=== PATIENT | male | born 1955 | race Caucasian/White ===

== ENCOUNTER 2020-07-27 | Outpatient (CLI) | payer MEDICARE, BC | END 2020-07-27 08:31 | disposition EMS.NT | DX: R07.81 Pleurodynia (principal) ==

== ENCOUNTER 2020-07-27 | Outpatient (CLI) | payer MEDICARE, BC | END 2020-07-27 10:40 | disposition critical access hospital (66) | DX: R07.81 Pleurodynia (principal) | CPT/HCPCS: A0425; A0429 ==

== ENCOUNTER 2020-07-27 10:50 | Emergency (ER) | payer MEDICARE, BC ==
[2020-07-27] MEDS ORDERED: KETOROLAC 60 MG/2 ML VIAL IM STA (12:04)
[2020-07-27] MEDS ORDERED: HYDROmorphone 1 MG/ML CARPUJECT IM STA (12:04)
--- NOTE | 2020-07-27 12:34 | XRAY Report ---
PROCEDURE: Chest 1 View X-Ray INDICATIONS: chest pain TECHNIQUE: One view of the chest was acquired. 2 images. COMPARISON: None. FINDINGS: Surgical changes and devices: Scoliosis rods. Lungs and pleura: Blunting of the left costophrenic angle due to trace effusion. No pneumothorax. Mi nimal platelike opacity at the left lung base. There may be a trace calcification. Lungs otherwise ap pear clear. Mediastinum: Mediastinal contours appear normal. Heart size is normal. Bones and chest wall: No suspicious bony lesions. Overlying soft tissues appear unremarkable. IMPRESSION: 1. Trace left pleural effusion. 2. Platelike opacity at the left lung base with possible calcification. This could represent a calcif ied pleural plaque, atelectasis/scarring, or infectious/inflammatory etiology. -If clinically indicated this can be further evaluated with CT of the chest. Reviewed by: Hugo Olivera MD on 07/27/2020 12:33 PM PST Approved by: Hugo Olivera MD on 07/27/2020 12:33 PM [facility] Station ID: [id number]
--- NOTE | 2020-07-27 12:46 | ED Physician Documentation ---
History of Present Illness - Stated complaint Stated Complaint: CHEST MUSCLE PX - Chief complaint Chief Complaint: General - History obtained from History obtained from: Patient - Additonal information Additional information: Comes emergency department chief complaint of Left side pain that has been going on on and off for a couple of months, but is worse today. Patient states that it normally hurts with certain movements or deep breaths, but today, he could hardly move because it hurts about. Patient denies anything else that is new. No fevers or chills. No difficulty breathing. No cough. Patient denies any radiation of the pain, though he is a paraplegic and has no feeling below his upper abdomen. Patient states that the pain is right around the level of his left nipple and wraps around his side along the ribs. No trauma. 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 Nothing out of the ordinary activity mora lately, though. Review of Systems Ten Systems: 10 systems reviewed and negative Constitutional: reports: Reviewed and negative Eyes: reports: Reviewed and negative Ears: reports: Reviewed and negative Nose: reports: Reviewed and negative Throat: reports: Reviewed and negative Cardiac: reports: Chest pain / pressure Respiratory: reports: Reviewed and negative. denies: Dyspnea, Cough GI: reports: Reviewed and negative : reports: Reviewed and negative Skin: reports: Reviewed and negative Musculoskeletal: reports: Reviewed and negative Neurologic: reports: Reviewed and negative Psychiatric: reports: Reviewed and negative Endocrine: reports: Reviewed and negative Immunocompromised: reports: Reviewed and negative PD PAST MEDICAL HISTORY - Past Medical History Endocrine/Autoimmune: Type 2 diabetes - Past Surgical History Past Surgical History: Yes - Present Medications Home Medications: Ambulatory Orders Medication Instructions Recorded Confirmed Potassium Chloride 20 meq PO DAILY 12/17/15 07/27/20 amLODIPine [Norvasc] 10 mg PO DAILY 12/17/15 07/27/20 Apixaban [Eliquis] 5 mg PO DAILY 07/27/20 07/27/20 Atorvastatin [Lipitor] 10 mg PO DAILY 07/27/20 07/27/20 HYDROcod/ACETAM 5/325 [[place] 5/325] 1 - 2 ea PO Q6H PRN #15 tablet 07/27/20 Labetalol [Trandate] 100 mg PO BID 07/27/20 07/27/20 Losartan/Hydrochlorothiazide 1 tab PO DAILY 07/27/20 07/27/20 [Hyzaar 100-25 Tablet] Pioglitazone [Actos] 15 mg PO DAILY 07/27/20 07/27/20 - Allergies Allergies/Adverse Reactions: Allergies Allergy/AdvReac Type Severity Reaction Status Date / Time Sulfa (Sulfonamide Allergy Rash Verified 07/27/20 11:01 Antibiotics) - Social History Does the pt smoke?: No Smoking Status: Never smoker Does the pt drink ETOH?: No Does the pt have substance abuse?: No PD ED PE NORMAL - Vitals Vital signs reviewed: Yes - General General: Alert and oriented X 3, No acute distress - HEENT HEENT: Atraumatic, PERRL, EOMI, Moist mucous membranes - Neck Neck: Supple, no meningeal sign - Cardiac Cardiac: RRR, No murmur, Strong equal pulses - Respiratory Respiratory: No respiratory distress, Clear bilaterally, Other (Chest pain with palpation of chest wall along fifth intercostal space. No evidence of chest wall trauma.) - Abdomen Abdomen: Soft, Non tender, Non distended - Derm Derm: Warm and dry - Extremities Extremities: No deformity - Neuro Neuro: Alert and oriented X 3 - Psych Psych: Normal mood, Normal affect Results - Vitals Vitals: Oxygen O2 Source Room air - EKG (time done) 1208 Rate: Rate (enter#) (74) Rhythm: Atrial fibrillation [place]: Normal Intervals: Normal AL, LBBB QRS: Normal Ischemia: Normal ST segments Compare to prior EKG: Old EKG unavailable Computer interpretation: Agree with computer - Rads (name of study) cxr Radiology: Final report received, EMP read indepedently, See rad report (neg) PD MEDICAL DECISION MAKING - ED course Complexity details: reviewed results, re-evaluated patient, considered differential, d/w patient ED course: I d/w pt that his EKG and CXR look good. There is no evidence of a serious or emergent cause of his CP, which seems to be an exacerbation of his chronic sx. Additionally, the pt is well-appearing, and has a normal exam except for reproducible CW pain. I feel that the most probable cause of his pain is muscu loskeletal. The pt has mentioned concern about possible urinary calculus, but I do not feel that this is likely, based on the history and findings. We have discussed the usual indications for return. Departure - Departure Disposition: Home, Self Care Clinical Impression: Chest wall pain Condition: Stable Instructions: ED Chest Pain Costochondritis Prescriptions: HYDROcod/ACETAM 5/325 [[place] 5/325] 1 - 2 ea PO Q6H PRN #15 tablet PRN Reason: Pain Comments: Your x-ray and EKG do not show any acute issues today. The pain you are describing sounds more like it is coming from the structural/mechanical components of your chest. Please take the medication you have been prescribed to help with the pain. You may follow-up with your primary care physician as needed. Discharge Date/Time: 07/27/20 13:35
[2020-07-27 16:26] VITALS: BP 150/90
== END 2020-07-27 13:35 | disposition home or self-care (01) ==
LOC: EDUNIT# → ED 10:50
DX: R07.89 Other chest pain (principal); E11.9 Type 2 diabetes mellitus without complications; I48.91 Unspecified atrial fibrillation; Z79.01 Long term (current) use of anticoagulants; I44.7 Left bundle-branch block, unspecified
CPT/HCPCS: 71045; 93005; 96372; 99284; 99285; J1170

== ENCOUNTER 2020-08-08 08:00 | Outpatient (CLI) | payer MEDICARE, BC ==
[2020-08-08 10:46] LABS: BASOPHILS % (AUTO) 0.5 %; EOSINOPHILS # (AUTO) 0.2 10^3/uL (0.0-0.7); HGB - HEMOGLOBIN 14.6 g/dL (14.0-18.0); LYMPHOCYTES # (AUTO) 0.8 10^3/uL (1.5-3.5); LYMPHOCYTES % (AUTO) 11.3 %; MEAN CORPUSCULAR HEMOGLOBIN 28.5 pg (27.0-31.0); MEAN CORPUSCULAR HGB CONC 32.5 g/dL (32.0-36.0); MEAN CORPUSCULAR VOLUME 87.7 fL (80.0-94.0); MEAN PLATELET VOLUME 11.9 fL (7.4-11.4); MONOCYTES # (AUTO) 0.6 10^3/uL (0.0-1.0); NEUTROPHILS # (AUTO) 5.7 10^3/uL (1.5-6.6); NEUTROPHILS % (AUTO) 77.7 %; PLT - PLATELET COUNT 226 10^3/uL (130-450); RED BLOOD COUNT 5.12 10^6/uL (4.70-6.10); RED CELL DISTRIBUTION WIDTH 13.3 % (12.0-15.0); WHITE BLOOD COUNT 7.3 x10^3/uL (4.8-10.8)
[2020-08-08 11:05] LABS: ALBUMIN 3.8 g/dL (3.2-5.5); ALBUMIN/GLOBULIN RATIO 1.1 (1.0-2.2); ALKALINE PHOSPHATASE 71 IU/L (42-121); ALT ALANINE AMINOTRANSFERASE 23 IU/L (10-60); AST ASPARTATE AMINOTRANSFERASE 17 IU/L (10-42); BILIRUBIN,TOTAL 0.8 mg/dL (0.2-1.0); BUN - BLOOD UREA NITROGEN 15 mg/dL (6-20); CARBON DIOXIDE - CO2 26 mmol/L (21-32); CHLORIDE 100 mmol/L (101-111); CREATININE 0.4 mg/dL (0.6-1.2); CRP - C-REACTIVE PROTEIN 1.2 mg/dL (0-1.0); GLUCOSE 198 mg/dL (70-100); SODIUM 136 mmol/L (135-145); TOTAL PROTEIN 7.3 g/dL (6.7-8.2); VANCOMYCIN,TROUGH 11.1 ug/mL (10.0-20.0)
== END 2020-08-08 23:59 | disposition home or self-care (01) ==
LOC: LAB.R 08:00
PROVIDERS: ATTEND Internal Medicine Infectious Disease
DX: M46.26 Osteomyelitis of vertebra, lumbar region (principal); I48.0 Paroxysmal atrial fibrillation; E11.9 Type 2 diabetes mellitus without complications
CPT/HCPCS: 80053; 80202; 85025; 85651; 86140

== ENCOUNTER 2020-08-10 08:00 | Outpatient (CLI) | payer MEDICARE, BC ==
[2020-08-10 15:55] LABS: CALCIUM 9.5 mg/dL (8.5-10.3); CREATININE 0.3 mg/dL (0.6-1.2)
== END 2020-08-10 23:59 | disposition home or self-care (01) ==
LOC: LAB.R 08:00
PROVIDERS: ATTEND Internal Medicine Infectious Disease
DX: M46.26 Osteomyelitis of vertebra, lumbar region (principal); E11.9 Type 2 diabetes mellitus without complications; I48.0 Paroxysmal atrial fibrillation
CPT/HCPCS: 80048

== ENCOUNTER 2020-08-14 09:30 | Outpatient (CLI) | payer MEDICARE, BC ==
[2020-08-14 11:09] LABS: BASOPHILS # (AUTO) 0.1 10^3/uL (0.0-0.1); BASOPHILS % (AUTO) 0.9 %; EOSINOPHILS # (AUTO) 0.2 10^3/uL (0.0-0.7); EOSINOPHILS % (AUTO) 2.4 %; HGB - HEMOGLOBIN 13.4 g/dL (14.0-18.0); LYMPHOCYTES # (AUTO) 1.1 10^3/uL (1.5-3.5); LYMPHOCYTES % (AUTO) 16.9 %; MEAN CORPUSCULAR HEMOGLOBIN 28.9 pg (27.0-31.0); MEAN CORPUSCULAR HGB CONC 32.6 g/dL (32.0-36.0); MEAN CORPUSCULAR VOLUME 88.8 fL (80.0-94.0); MEAN PLATELET VOLUME 11.8 fL (7.4-11.4); MONOCYTES # (AUTO) 0.6 10^3/uL (0.0-1.0); MONOCYTES % (AUTO) 8.8 %; NEUTROPHILS # (AUTO) 4.7 10^3/uL (1.5-6.6); NEUTROPHILS % (AUTO) 70.5 %; PLT - PLATELET COUNT 242 10^3/uL (130-450); RED BLOOD COUNT 4.63 10^6/uL (4.70-6.10); RED CELL DISTRIBUTION WIDTH 13.4 % (12.0-15.0); WHITE BLOOD COUNT 6.6 x10^3/uL (4.8-10.8)
[2020-08-14 11:24] LABS: ALBUMIN 3.7 g/dL (3.2-5.5); ALBUMIN/GLOBULIN RATIO 1.1 (1.0-2.2); ALKALINE PHOSPHATASE 68 IU/L (42-121); ALT ALANINE AMINOTRANSFERASE 19 IU/L (10-60); AST ASPARTATE AMINOTRANSFERASE 15 IU/L (10-42); BUN - BLOOD UREA NITROGEN 14 mg/dL (6-20); CALCIUM 9.6 mg/dL (8.5-10.3); CARBON DIOXIDE - CO2 28 mmol/L (21-32); CHLORIDE 97 mmol/L (101-111); CREATININE 0.4 mg/dL (0.6-1.2); CRP - C-REACTIVE PROTEIN 2.3 mg/dL (0-1.0); GLUCOSE 174 mg/dL (70-100); SODIUM 139 mmol/L (135-145); VANCOMYCIN,TROUGH 14.9 ug/mL (10.0-20.0)
== END 2020-08-14 23:59 | disposition home or self-care (01) ==
LOC: LAB.R 09:30
PROVIDERS: ATTEND Internal Medicine Infectious Disease
DX: M46.26 Osteomyelitis of vertebra, lumbar region (principal); I48.0 Paroxysmal atrial fibrillation; E11.9 Type 2 diabetes mellitus without complications
CPT/HCPCS: 36415; 80053; 80202; 85025; 85651; 86140

== ENCOUNTER 2020-08-17 09:55 | Outpatient (CLI) | payer MEDICARE, BC ==
[2020-08-17 18:55] LABS: CALCIUM 9.1 mg/dL (8.5-10.3); CREATININE 0.4 mg/dL (0.6-1.2)
== END 2020-08-17 23:59 | disposition home or self-care (01) ==
LOC: LAB.R 09:55
PROVIDERS: ATTEND Internal Medicine Infectious Disease
DX: M46.26 Osteomyelitis of vertebra, lumbar region (principal); I48.0 Paroxysmal atrial fibrillation; E11.9 Type 2 diabetes mellitus without complications
CPT/HCPCS: 80048

== ENCOUNTER 2020-08-21 08:00 | Outpatient (CLI) | payer MEDICARE, BC ==
[2020-08-21 18:16] LABS: BASOPHILS # (AUTO) 0.1 10^3/uL (0.0-0.1); BASOPHILS % (AUTO) 0.7 %; EOSINOPHILS # (AUTO) 0.1 10^3/uL (0.0-0.7); EOSINOPHILS % (AUTO) 2.1 %; HGB - HEMOGLOBIN 12.6 g/dL (14.0-18.0); LYMPHOCYTES # (AUTO) 0.9 10^3/uL (1.5-3.5); LYMPHOCYTES % (AUTO) 13.4 %; MEAN CORPUSCULAR HEMOGLOBIN 28.6 pg (27.0-31.0); MEAN CORPUSCULAR HGB CONC 31.7 g/dL (32.0-36.0); MEAN CORPUSCULAR VOLUME 90.2 fL (80.0-94.0); MEAN PLATELET VOLUME 11.7 fL (7.4-11.4); MONOCYTES # (AUTO) 0.7 10^3/uL (0.0-1.0); MONOCYTES % (AUTO) 9.8 %; NEUTROPHILS % (AUTO) 73.6 %; PLT - PLATELET COUNT 220 10^3/uL (130-450); RED CELL DISTRIBUTION WIDTH 13.7 % (12.0-15.0); WHITE BLOOD COUNT 6.7 x10^3/uL (4.8-10.8)
[2020-08-21 18:26] LABS: ALBUMIN 3.7 g/dL (3.2-5.5); ALBUMIN/GLOBULIN RATIO 1.2 (1.0-2.2); ALKALINE PHOSPHATASE 70 IU/L (42-121); ALT ALANINE AMINOTRANSFERASE 20 IU/L (10-60); AST ASPARTATE AMINOTRANSFERASE 18 IU/L (10-42); BUN - BLOOD UREA NITROGEN 16 mg/dL (6-20); CARBON DIOXIDE - CO2 26 mmol/L (21-32); CHLORIDE 101 mmol/L (101-111); CREATININE 0.4 mg/dL (0.6-1.2); GLUCOSE 222 mg/dL (70-100); TOTAL PROTEIN 6.8 g/dL (6.7-8.2); VANCOMYCIN,TROUGH 18.4 ug/mL (10.0-20.0)
== END 2020-08-21 23:59 | disposition home or self-care (01) ==
LOC: LAB.R 08:00
PROVIDERS: ATTEND Internal Medicine Infectious Disease
DX: M46.26 Osteomyelitis of vertebra, lumbar region (principal); E11.9 Type 2 diabetes mellitus without complications; I48.0 Paroxysmal atrial fibrillation
CPT/HCPCS: 80053; 80202; 85025; 85651; 86140

== ENCOUNTER 2020-08-24 08:00 | Outpatient (CLI) | payer MEDICARE, BC ==
[2020-08-24 18:12] LABS: CALCIUM 8.7 mg/dL (8.5-10.3); CREATININE 0.4 mg/dL (0.6-1.2)
== END 2020-08-24 23:59 | disposition home or self-care (01) ==
LOC: LAB.R 08:00
PROVIDERS: ATTEND Internal Medicine Infectious Disease
DX: E11.9 Type 2 diabetes mellitus without complications (principal); M46.26 Osteomyelitis of vertebra, lumbar region; I48.0 Paroxysmal atrial fibrillation
CPT/HCPCS: 80048

== ENCOUNTER 2020-08-28 16:30 | Outpatient (CLI) | payer MEDICARE, BC ==
[2020-08-28 18:14] LABS: BILIRUBIN,URINE NEGATIVE (NEGATIVE); GLUCOSE, URINE (UA) NEGATIVE (NEGATIVE); KETONES,URINE (UA) NEGATIVE (NEGATIVE); LEUKOCYTE ESTERASE, URINE NEGATIVE (NEGATIVE); NITRITE,URINE NEGATIVE (NEGATIVE); OCCULT BLOOD,URINE NEGATIVE (NEGATIVE); PROTEIN,URINE NEGATIVE (NEGATIVE); UROBILINOGEN,URINE 0.2 (NORMAL) E.U./dL (NORMAL)
[2020-08-28 18:17] LABS: CLARITY,URINE CLEAR (CLEAR)
[2020-08-28 18:18] LABS: BASOPHILS # (AUTO) 0.1 10^3/uL (0.0-0.1); BASOPHILS % (AUTO) 0.6 %; EOSINOPHILS # (AUTO) 0.2 10^3/uL (0.0-0.7); EOSINOPHILS % (AUTO) 1.5 %; LYMPHOCYTES # (AUTO) 1.4 10^3/uL (1.5-3.5); LYMPHOCYTES % (AUTO) 11.5 %; MEAN CORPUSCULAR HEMOGLOBIN 29.2 pg (27.0-31.0); MEAN CORPUSCULAR HGB CONC 31.5 g/dL (32.0-36.0); MEAN CORPUSCULAR VOLUME 92.7 fL (80.0-94.0); MEAN PLATELET VOLUME 11.4 fL (7.4-11.4); MONOCYTES # (AUTO) 1.3 10^3/uL (0.0-1.0); MONOCYTES % (AUTO) 10.7 %; NEUTROPHILS # (AUTO) 9.3 10^3/uL (1.5-6.6); NEUTROPHILS % (AUTO) 75.1 %; PLT - PLATELET COUNT 408 10^3/uL (130-450); RED BLOOD COUNT 2.33 10^6/uL (4.70-6.10); RED CELL DISTRIBUTION WIDTH 13.2 % (12.0-15.0); WHITE BLOOD COUNT 12.4 x10^3/uL (4.8-10.8)
[2020-08-28 18:43] LABS: HGB - HEMOGLOBIN 6.8 g/dL (14.0-18.0)
== END 2020-08-28 23:59 | disposition home or self-care (01) ==
LOC: LAB.R 16:30
PROVIDERS: ATTEND Internal Medicine Infectious Disease
DX: M46.26 Osteomyelitis of vertebra, lumbar region (principal); N39.0 Urinary tract infection, site not specified
CPT/HCPCS: 81001; 81003; 85025; 87040; 87086

== ENCOUNTER 2020-08-28 20:05 | Emergency (ER) | payer MEDICARE, BC ==
[2020-08-28 20:57] LABS: BASOPHILS # (AUTO) 0.1 10^3/uL (0.0-0.1); BASOPHILS % (AUTO) 0.6 %; EOSINOPHILS # (AUTO) 0.2 10^3/uL (0.0-0.7); HGB - HEMOGLOBIN 11.9 g/dL (14.0-18.0); LYMPHOCYTES % (AUTO) 12.1 %; MEAN CORPUSCULAR HEMOGLOBIN 28.5 pg (27.0-31.0); MEAN CORPUSCULAR HGB CONC 31.7 g/dL (32.0-36.0); MEAN CORPUSCULAR VOLUME 89.7 fL (80.0-94.0); MEAN PLATELET VOLUME 10.5 fL (7.4-11.4); MONOCYTES # (AUTO) 0.9 10^3/uL (0.0-1.0); MONOCYTES % (AUTO) 11.5 %; NEUTROPHILS # (AUTO) 5.8 10^3/uL (1.5-6.6); NEUTROPHILS % (AUTO) 73.5 %; PLT - PLATELET COUNT 297 10^3/uL (130-450); RED BLOOD COUNT 4.18 10^6/uL (4.70-6.10); RED CELL DISTRIBUTION WIDTH 13.2 % (12.0-15.0); WHITE BLOOD COUNT 7.9 x10^3/uL (4.8-10.8)
[2020-08-28 21:13] LABS: CALCIUM 9.2 mg/dL (8.5-10.3); CREATININE 0.4 mg/dL (0.6-1.2); CRP - C-REACTIVE PROTEIN 9.8 mg/dL (0-1.0)
--- NOTE | 2020-08-28 21:41 | ED Physician Documentation ---
History of Present Illness - Stated complaint Stated Complaint: ABNORMAL LABS - Chief complaint Chief Complaint: General - History obtained from History obtained from: Patient - Additonal information Additional information: Patient comes emergency department with chief complaint of abnormal labs drawn by home health. The patient's labs had shown a mildly elevated white blood cell count and a significantly low hemoglobin at 6.8. This was an abrupt change from the patient's recent labs. The patient states that he is feeling quite well and actually, he has had the best day today that he has had in the last 2 weeks. The patient is currently being worked up and treated for an apparently sterile discitis, as well as ongoing, intermittently severe, left-sided chest pain. The patient has a central line in place which has been used for IV antibiotics until 2 days ago. He states that he is going to see his neurosurgeon in 2 days and that the neurosurgeon will decide whether there is still any significant likelihood of infectious source of his discitis. If not, plan is to remove the central line at that time. The patient has had multiple biopsies of the inflamed area which involves L2 and L3, and so far, no evidence of malignancy or infection has been found. Patient denies any other complaints at this time. He has oxycodone at home and states that his pain is currently under control. No recent fevers. No blood in his stools. No other complaints at this time. Review of Systems Ten Systems: 10 systems reviewed and negative Constitutional: reports: Reviewed and negative Eyes: reports: Reviewed and negative Ears: reports: Reviewed and negative Nose: reports: Reviewed and negative Throat: reports: Reviewed and negative Cardiac: reports: Reviewed and negative Respiratory: reports: Reviewed and negative GI: reports: Reviewed and negative : reports: Reviewed and negative Skin: reports: Reviewed and negative Musculoskeletal: reports: Reviewed and negative Neurologic: reports: Reviewed and negative Psychiatric: reports: Reviewed and negative Endocrine: reports: Reviewed and negative Immunocompromised: reports: Reviewed and negative PD PAST MEDICAL HISTORY - Past Medical History Past Medical History: Yes Endocrine/Autoimmune: Type 2 diabetes - Past Surgical History Past Surgical History: Yes - Present Medications Home Medications: Ambulatory Orders Medication Instructions Recorded Confirmed Potassium Chloride 20 meq PO DAILY 12/17/15 08/28/20 amLODIPine [Norvasc] 10 mg PO DAILY 12/17/15 08/28/20 Apixaban [Eliquis] 5 mg PO DAILY 07/27/20 08/28/20 Atorvastatin [Lipitor] 10 mg PO DAILY 07/27/20 08/28/20 Labetalol [Trandate] 100 mg PO BID 07/27/20 08/28/20 Losartan/Hydrochlorothiazide 1 tab PO DAILY 07/27/20 08/28/20 [Hyzaar 100-25 Tablet] Pioglitazone [Actos] 15 mg PO DAILY 07/27/20 08/28/20 Cefdinir 300 mg PO BID 08/28/20 08/28/20 Doxycycline Monohydrate [Avidoxy] 100 mg PO BID 08/28/20 08/28/20 Dulaglutide [Trulicity] 08/28/20 Eplerenone [Inspra] 50 mg PO DAILY 08/28/20 08/28/20 HYDROcod/ACETAM 5/325 [[place] 5/325] 1 - 2 tab PO PRN 08/28/20 glyBURIDE [Glyburide] 1.25 08/28/20 - Allergies Allergies/Adverse Reactions: Allergies Allergy/AdvReac Type Severity Reaction Status Date / Time Sulfa (Sulfonamide Allergy Rash Verified 08/28/20 20:11 Antibiotics) - Social History Does the pt smoke?: No Smoking Status: Never smoker Does the pt drink ETOH?: No Does the pt have substance abuse?: No - Immunizations Immunizations are current?: Yes PD ED PE NORMAL - Vitals Vital signs reviewed: Yes - General General: Alert and oriented X 3, No acute distress - HEENT HEENT: Atraumatic, PERRL, EOMI, Moist mucous membranes - Neck Neck: Supple, no meningeal sign - Cardiac Cardiac: RRR, No murmur - Respiratory Respiratory: No respiratory distress, Clear bilaterally - Derm Derm: Normal color, Warm and dry, No rash - Extremities Extremities: No deformity - Neuro Neuro: Alert and oriented X 3, Other (Absent sensation from the upper abdomen and distally. Patient is a paraplegic and has no motor or sensory capabilities in his lower extremities.) - Psych Psych: Normal mood, Normal affect Results - Vitals Vitals: Vital Signs - 24 hr 08/28/20 20:11 Temperature 36.5 C Heart Rate 90 Respiratory 16 Rate Blood Pressure 169/89 H O2 Saturation 97 Oxygen O2 Source Room air - Labs Labs: Laboratory Tests 08/28/20 08/28/20 20:49 20:49 WBC 7.9 RBC 4.18 L Hgb 11.9 L Hct 37.5 L MCV 89.7 MCH 28.5 MCHC 31.7 L RDW 13.2 Plt Count 297 MPV 10.5 Neut # (Auto) 5.8 Lymph # (Auto) 1.0 L [place] # (Auto) 0.9 Eos # (Auto) 0.2 Baso # (Auto) 0.1 Absolute Nucleated RBC 0.00 Nucleated RBC % 0.0 Sodium 137 Potassium 3.5 Chloride 99 L Carbon Dioxide 27 Anion Gap 11.0 BUN 22 H Creatinine 0.4 L Estimated GFR (MDRD) 217 Glucose 151 H Calcium 9.2 C-Reactive Protein 9.8 H PD MEDICAL DECISION MAKING - ED course Complexity details: reviewed old records, reviewed results, re-evaluated patient, considered differential, d/w patient ED course: CBC was performed here in the emergency department and showed a normal white blood cell count 7.9 and a nearly normal hemoglobin at 11.9. The patient was feeling very well and I discussed with him that I am not sure what the reason was for his abnormal labs earlier. However, he does not have any symptoms of infection or of internal bleeding and I feel that he is stable for discharge. [facility] requested that patient central line be removed in the emergency department but patient would like to hold off on doing this until he sees the neurosurgeon, as the plan has been to keep the central line until then. I feel this is reasonable. We have discussed the usual indications for return. Departure - Departure Disposition: 01 Home, Self Care Clinical Impression: Abnormal laboratory test result Condition: Stable Comments: Your labs today in the emergency department look great. There is no evidence of an elevated white blood cell count, nor is there evidence of significant anemia. It is not clear what caused her abnormal blood work outside of her system today, but your results here are reassuring. Please continue your plans to follow-up with your neurosurgeon on Friday. Since your plan was to leave the central line in until you see your neurosurgeon, we will continue with that plan. If you develop fevers or blood in your stools or any other concerns times, please seek medical reevaluation immediately.
[2020-08-28 21:47] VITALS: BP 164/100
== END 2020-08-28 21:47 | disposition home or self-care (01) ==
LOC: ED 20:05
DX: R79.89 Other specified abnormal findings of blood chemistry (principal); M46.40 Discitis, unspecified, site unspecified; G82.20 Paraplegia, unspecified; E11.9 Type 2 diabetes mellitus without complications; Z79.84 Long term (current) use of oral hypoglycemic drugs; Z79.01 Long term (current) use of anticoagulants; M46.26 Osteomyelitis of vertebra, lumbar region; N39.0 Urinary tract infection, site not specified
CPT/HCPCS: 36415; 80048; 81001; 81003; 85025; 85651; 86140; 86850; 86900; 86901; 87040; 87086; 99283

== ENCOUNTER 2020-08-31 14:49 | Emergency (ER) | payer MEDICARE, BC ==
[2020-08-31 15:09] VITALS: BP 166/80
[2020-08-31] MEDS ORDERED: BUFFERED LIDOCAINE 10 ML SYRINGE SUBQ STA (15:22)
--- NOTE | 2020-08-31 15:34 | ED Physician Documentation ---
History of Present Illness - Stated complaint Stated Complaint: CENTRAL LINE REMOVAL - Chief complaint Chief Complaint: General - History obtained from History obtained from: Patient - Additonal information Additional information: He was getting IV antibiotics for discitis of the spine, but since all the cultures have come back negative he is no longer getting antibiotics and presents requesting his central line be removed. Review of Systems Constitutional: reports: Reviewed and negative Eyes: reports: Reviewed and negative Ears: reports: Reviewed and negative Nose: reports: Reviewed and negative PD PAST MEDICAL HISTORY - Past Medical History Past Medical History: Yes Endocrine/Autoimmune: Type 2 diabetes - Past Surgical History Past Surgical History: Yes Ortho: Other - Present Medications Home Medications: Ambulatory Orders Medication Instructions Recorded Confirmed Potassium Chloride 20 meq PO DAILY 12/17/15 08/28/20 amLODIPine [Norvasc] 10 mg PO DAILY 12/17/15 08/28/20 Apixaban [Eliquis] 5 mg PO DAILY 07/27/20 08/28/20 Atorvastatin [Lipitor] 10 mg PO DAILY 07/27/20 08/28/20 Labetalol [Trandate] 100 mg PO BID 07/27/20 08/28/20 Losartan/Hydrochlorothiazide 1 tab PO DAILY 07/27/20 08/28/20 [Hyzaar 100-25 Tablet] Pioglitazone [Actos] 15 mg PO DAILY 07/27/20 08/28/20 Cefdinir 300 mg PO BID 08/28/20 08/28/20 Doxycycline Monohydrate [Avidoxy] 100 mg PO BID 08/28/20 08/28/20 Dulaglutide [Trulicity] 08/28/20 Eplerenone [Inspra] 50 mg PO DAILY 08/28/20 08/28/20 HYDROcod/ACETAM 5/325 [[place] 5/325] 1 - 2 tab PO PRN 08/28/20 glyBURIDE [Glyburide] 1.25 08/28/20 - Allergies Allergies/Adverse Reactions: Allergies Allergy/AdvReac Type Severity Reaction Status Date / Time amoxicillin [From Augmentin] Allergy Unknown Verified 08/31/20 15:09 clavulanic acid Allergy Unknown Verified 08/31/20 15:09 [From Augmentin] Sulfa (Sulfonamide Allergy Rash Verified 08/28/20 20:11 Antibiotics) - Social History Does the pt smoke?: No Smoking Status: Never smoker Does the pt drink ETOH?: No Does the pt have substance abuse?: No - Immunizations Immunizations are current?: Yes PD ED PE NORMAL - Vitals Vital signs reviewed: Yes - General General: Alert and oriented X 3, No acute distress - HEENT HEENT: PERRL, EOMI - Neck Neck: Supple, no meningeal sign, No bony TTP - Derm Derm: Other (There is a tunneled [place] type catheter in the right upper chest without signs of infection) Results - Vitals Vitals: Vital Signs - 24 hr 08/31/20 15:03 Temperature 36 C L Heart Rate 81 Respiratory 16 Rate Blood Pressure 166/80 H O2 Saturation 99 Oxygen O2 Source Room air PD MEDICAL DECISION MAKING - ED course ED course: The area around the catheter was prepped with iodine and the sutures cut. The tract was dilated gently with hemostats and the catheter was removed in its entirety and without complication. Departure - Departure Disposition: 01 Home, Self Care Clinical Impression: PIC line (peripherally inserted central catheter) removal Condition: Good Record reviewed to determine appropriate education?: Yes Comments: Follow-up with your infectious disease doctors as per your new routine. Return if worse.
== END 2020-08-31 15:48 | disposition home or self-care (01) ==
LOC: ED 14:49
DX: Z45.2 Encounter for adjustment and management of vascular access device (principal); E11.9 Type 2 diabetes mellitus without complications; Z79.899 Other long term (current) drug therapy
CPT/HCPCS: 99282; 99283

== ENCOUNTER 2020-09-12 13:39 | Outpatient (CLI) | payer MEDICARE, BC ==
[2020-09-12 14:16] LABS: BASOPHILS # (AUTO) 0.1 10^3/uL (0.0-0.1); BASOPHILS % (AUTO) 0.8 %; EOSINOPHILS # (AUTO) 0.2 10^3/uL (0.0-0.7); EOSINOPHILS % (AUTO) 2.1 %; LYMPHOCYTES # (AUTO) 1.4 10^3/uL (1.5-3.5); LYMPHOCYTES % (AUTO) 15.9 %; MEAN CORPUSCULAR HEMOGLOBIN 27.8 pg (27.0-31.0); MEAN CORPUSCULAR HGB CONC 31.2 g/dL (32.0-36.0); MEAN CORPUSCULAR VOLUME 89.1 fL (80.0-94.0); MEAN PLATELET VOLUME 10.4 fL (7.4-11.4); MONOCYTES # (AUTO) 0.7 10^3/uL (0.0-1.0); MONOCYTES % (AUTO) 8.1 %; NEUTROPHILS # (AUTO) 6.1 10^3/uL (1.5-6.6); NEUTROPHILS % (AUTO) 72.3 %; PLT - PLATELET COUNT 421 10^3/uL (130-450); RED BLOOD COUNT 3.96 10^6/uL (4.70-6.10); RED CELL DISTRIBUTION WIDTH 13.2 % (12.0-15.0); WHITE BLOOD COUNT 8.5 x10^3/uL (4.8-10.8)
== END 2020-09-12 13:40 | disposition home or self-care (01) ==
LOC: LAB 13:39
PROVIDERS: ATTEND Internal Medicine Infectious Disease
DX: M46.20 Osteomyelitis of vertebra, site unspecified (principal)
CPT/HCPCS: 36415; 85025; 85651; 86141

== ENCOUNTER 2020-10-27 11:30 | Outpatient (CLI) | payer MEDICARE, BC ==
[2020-10-27 12:07] LABS: BASOPHILS # (AUTO) 0.1 10^3/uL (0.0-0.1); EOSINOPHILS # (AUTO) 0.1 10^3/uL (0.0-0.7); EOSINOPHILS % (AUTO) 1.9 %; HCT - HEMATOCRIT 41.8 % (42.0-52.0); HGB - HEMOGLOBIN 12.8 g/dL (14.0-18.0); LYMPHOCYTES % (AUTO) 20.1 %; MEAN CORPUSCULAR HEMOGLOBIN 26.8 pg (27.0-31.0); MEAN CORPUSCULAR HGB CONC 30.6 g/dL (32.0-36.0); MEAN CORPUSCULAR VOLUME 87.6 fL (80.0-94.0); MEAN PLATELET VOLUME 10.9 fL (7.4-11.4); MONOCYTES # (AUTO) 0.4 10^3/uL (0.0-1.0); MONOCYTES % (AUTO) 8.1 %; NEUTROPHILS # (AUTO) 3.5 10^3/uL (1.5-6.6); NEUTROPHILS % (AUTO) 68.3 %; PLT - PLATELET COUNT 271 10^3/uL (130-450); RED BLOOD COUNT 4.77 10^6/uL (4.70-6.10); RED CELL DISTRIBUTION WIDTH 14.6 % (12.0-15.0); WHITE BLOOD COUNT 5.2 x10^3/uL (4.8-10.8)
--- OUTSIDE RECORDS SUMMARY | 2020-11-01 01:51 | EXTERNAL MEDICAL SUMMARY RPT | Continuity of Care Document ---
:1955 Demographics Phone Unavailable Preferred Language Unknown Marital Status Unknown [employer] Affiliation Unknown Race Unknown Ethnic Group Unknown Author Organization [facility] Address [address] [place] [address] Phone Social History date description facility [phone]
[2020-11-01 19:52] LABS: ESTIMATED AVERAGE GLUCOSE 126 mg/dL (70-100)
== END 2020-10-27 11:31 | disposition home or self-care (01) ==
LOC: LAB 11:30
PROVIDERS: ATTEND Internal Medicine Infectious Disease
DX: M54.6 Pain in thoracic spine (principal); G89.29 Other chronic pain; E11.69 Type 2 diabetes mellitus with other specified complication; E78.5 Hyperlipidemia, unspecified
CPT/HCPCS: 36415; 83036; 85025; 85651; 86141

== ENCOUNTER 2021-07-29 10:46 | Emergency (ER) | payer MEDICARE, BC ==
[2021-07-29 11:08] VITALS: BP 187/63
--- NOTE | 2021-07-29 11:58 | ED Physician Documentation ---
History of Present Illness - Stated complaint Stated Complaint: R LEG LAC - Chief complaint Chief Complaint: Wound - Additonal information Additional information: 66-year-old male presents emergency department for evaluation of right lower la teral leg infection. 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 He is also a diabetic. He reports that yesterday he woke up and noticed the redness as well is a sore. He is unsure how it developed and denies that he has had new activities in his wheelchair, new clothing or socks. He denies any fevers, recent falls. He does report that they squeezed about a quarter sized amount of pus from the wound this morning. He has a diabetic compliant with his insulins. Reports fasting sugars typically about 130. He is also scheduled to undergo a pacemaker placement through [facility] within the next few weeks due to persistent bradycardia. He denies any chest pain or shortness of air. No syncopal episodes. Review of Systems Constitutional: denies: Fever, Chills Nose: reports: Reviewed and negative Throat: reports: Reviewed and negative Cardiac: reports: Reviewed and negative Respiratory: reports: Reviewed and negative GI: reports: Reviewed and negative Skin: reports: Lesions Musculoskeletal: reports: Reviewed and negative PD PAST MEDICAL HISTORY - Past Medical History Endocrine/Autoimmune: Type 2 diabetes - Past Surgical History Past Surgical History: Yes Ortho: Other - Present Medications Home Medications: Ambulatory Orders Medication Instructions Recorded Confirmed Potassium Chloride 20 meq PO DAILY 12/17/15 08/28/20 amLODIPine [Norvasc] 10 mg PO DAILY 12/17/15 08/28/20 Apixaban [Eliquis] 5 mg PO DAILY 07/27/20 08/28/20 Atorvastatin [Lipitor] 10 mg PO DAILY 07/27/20 08/28/20 Labetalol [Trandate] 100 mg PO BID 07/27/20 08/28/20 Losartan/Hydrochlorothiazide 1 tab PO DAILY 07/27/20 08/28/20 [Hyzaar 100-25 Tablet] Pioglitazone [Actos] 15 mg PO DAILY 07/27/20 08/28/20 Cefdinir 300 mg PO BID 08/28/20 08/28/20 Doxycycline Monohydrate [Avidoxy] 100 mg PO BID 08/28/20 08/28/20 Dulaglutide [Trulicity] 08/28/20 Eplerenone [Inspra] 50 mg PO DAILY 08/28/20 08/28/20 HYDROcod/ACETAM 5/325 [[place] 5/325] 1 - 2 tab PO PRN 08/28/20 glyBURIDE [Glyburide] 1.25 08/28/20 Doxycycline Hyclate [Vibramycin] 100 mg PO BID #20 cap 07/29/21 - Allergies Allergies/Adverse Reactions: Allergies Allergy/AdvReac Type Severity Reaction Status Date / Time amoxicillin [From Augmentin] Allergy Unknown Verified 07/29/21 11:08 clavulanic acid Allergy Unknown Verified 07/29/21 11:08 [From Augmentin] Sulfa (Sulfonamide Allergy Rash Verified 07/29/21 11:08 Antibiotics) - Social History Does the pt smoke?: No Smoking Status: Never smoker Does the pt drink ETOH?: No Does the pt have substance abuse?: No - Immunizations Immunizations are current?: Yes PD ED PE EXPANDED - General General: Alert, No acute distress, Well developed/nourished - Cardiac Cardiac: [place], Radial strong equal, Pedal strong equal, Cap refill < 2 sec - Respiratory Respiratory: Clear to ausultation tami. No: Distress, Labored - Abdomen Abdomen: Normal Bowel sounds. No: Tender to palpation - Extremities Extremities: Right leg (1 cm superficial ulceration right lower lateral leg proximal to the ankle. There is a fair amount of surrounding erythema measuring approximately 5 x 5 cm. No palpable fluctuance. No drainage. Centralized ulceration is covered by a white eschar.) Results - Vitals Vitals: Vital Signs - 24 hr 07/29/21 11:02 Temperature 36.1 C L Heart Rate 51 L Respiratory 16 Rate Blood Pressure 187/63 H O2 Saturation 100 Oxygen O2 Source Room air PD MEDICAL DECISION MAKING - ED course Complexity details: considered differential, d/w patient, d/w family ED course: 66-year-old male presents emergency department for evaluation of right lower lateral leg ulceration and subsequent cellulitis development. He noticed the wound yesterday but is unsure how long he is truly had it. He has not had any fevers. He is a diabetic as well as a T10 paraplegic thus he is insensate in the lower extremities. The ulceration does have surrounding cellulitis but no palpable fluctuance. Patient will be started on doxycycline. I have also advised a warm compress. He is to continue treatment for his diabetes with his insulin and reports good blood glucose control at home. He is scheduled to have a pacemaker placed within the next few weeks due to a persistent bradycardia. Patient will notify his primary care doctor as well his cardiology team about his current status. He has no syncope or chest pain/shortness of air. Departure - Departure Disposition: 01 Home, Self Care Clinical Impression: Cellulitis of right lower leg Ulcer of right lower leg Qualifiers: Non-pressure ulcer stage: limited to breakdown of skin Qualified Code(s): L97.911 - Non-pressure chronic ulcer of unspecified part of right lower leg scott ited to breakdown of skin Condition: Stable Record reviewed to determine appropriate education?: Yes Instructions: ED Cellulitis Ch Follow-Up: Ronit Chapman MD [Primary Care Provider] - Prescriptions: Doxycycline Hyclate [Vibramycin] 100 mg PO BID #20 cap Comments: Bernard you do have an ulcer that his developed on the right lower lateral leg. It is likely your leg came into contact with something that caused constant pressure. You now have been infection. Fill the prescription for the doxycycline take twice daily for the next 10 days. I would like you to apply a warm compress to the leg for 10 minutes 3 times a day. Please be very careful using any heat to your leg given your history of paraplegia. It is important that you contact your primary care doctor tomorrow to discuss this leg ulceration. The cardiology team at [facility] will also want to be aware that you are completing a course of antibiotics for a leg infection prior to placing your pacer. If at any point you develop fevers, have red streaking, increased redness despite the antibiotics please return immediately to the ER for a second evaluation. Your antibiotics have been sent electronically to the [facility] in [place]
== END 2021-07-29 12:09 | disposition home or self-care (01) ==
LOC: ED 10:46
DX: L03.115 Cellulitis of right lower limb (principal); E11.622 Type 2 diabetes mellitus with other skin ulcer; L97.811 Non-pressure chronic ulcer of other part of right lower leg limited to breakdown of skin; Z79.4 Long term (current) use of insulin; Z79.84 Long term (current) use of oral hypoglycemic drugs; R00.1 Bradycardia, unspecified; G82.20 Paraplegia, unspecified; S24.103S Unspecified injury at T7-T10 level of thoracic spinal cord, sequela; X58.XXXS Exposure to other specified factors, sequela; Z79.01 Long term (current) use of anticoagulants
CPT/HCPCS: 99282; 99284

== ENCOUNTER 2023-05-22 12:58 | Outpatient (CLI) | payer MEDICARE, BC ==
[2023-05-22 13:34] LABS: ALBUMIN 3.7 g/dL (3.2-5.5); ALBUMIN/GLOBULIN RATIO 1.1 (1.0-2.2); BILIRUBIN,TOTAL 0.7 mg/dL (0.2-1.0); CALCIUM 9.6 mg/dL (8.5-10.3); CREATININE 0.5 mg/dL (0.6-1.3); CRP - C-REACTIVE PROTEIN 3.7 mg/dL (<0.5); POTASSIUM 3.9 mmol/L (3.5-4.5)
== END 2023-05-22 12:59 | disposition home or self-care (01) ==
LOC: LAB.R 12:58
PROVIDERS: ATTEND Internal Medicine
DX: L08.9 Local infection of the skin and subcutaneous tissue, unspecified (principal); N49.2 Inflammatory disorders of scrotum
CPT/HCPCS: 80053; 86140

== ENCOUNTER 2024-01-01 10:22 | Outpatient (CLI) | payer MEDICARE, BC | END 2024-01-01 10:23 | disposition home or self-care (01) | LOC: LAB 10:22 | PROVIDERS: ATTEND Internal Medicine Cardiovascular Disease | DX: E87.5 Hyperkalemia (principal); I10 Essential (primary) hypertension | CPT/HCPCS: 36415; 84132 ==